=== PATIENT | female | born 1965 | race Caucasian/White ===

== ENCOUNTER 2016-05-15 10:20 | Emergency (ER) | payer SELFPAY ==
[~2016-05-15] VITALS: Ht 165.1 cm; Wt 56.0 kg
[2016-05-15 10:24] VITALS: BP 117/78
== END 2016-05-15 10:38 | disposition left against medical advice (07) | DRG 951 ==
LOC: ED 10:20 → LWOBS 10:38
DX: Z91.19 Patient's noncompliance with other medical treatment and regimen (principal)